=== PATIENT | male | born 1945 | race Caucasian/White ===

== ENCOUNTER 2017-11-10 10:14 | Inpatient (IN) | payer OTHER ==
[2017-11-10] VITALS (10 sets, daily range): BP systolic 130–202; BP diastolic 74–100
[~2017-11-10] VITALS: Ht 172.7 cm; Wt 72.6 kg
--- NOTE | 2017-11-10 10:27 | ED GENERAL ADULT ---
History of Present Illness General Chief Complaint: Psychiatric Related Complaint Stated Complaint: SIB [facility] FOR ALCOHOL WITHDRAWL Source: patient Exam Limitations: no limitations Vital Signs & Intake/Output Vital Signs & Intake/Output Vital Signs Date Time Temp Pulse Resp B/P B/P Pulse O2 O2 Flow FiO2 Mean Ox Delivery Rate 11/10 1048 99.3 110 20 /11/10 1041 98 Room Air Room Air 11/10 1022 99.3 110 24 93 Allergies Coded Allergies: No Known Allergies (11/10/17) Triage Note: PER PT WENT TO [facility] AND SENT HERE FOR WITHDRAWAL LAST DRINK 0500 DRINK MAINTAINENCE ETOH 1 PINT DAILY, TREMULOUS IN TRIAGE DENIES SZ OR DT Triage Nurses Notes Reviewed? yes HPI: Patient has been drinking very heavily for the past 3 weeks. Patient is an alcoholic with various periods of sobriety. Patient is unsure if he is having required medical detox in the past. Patient went to [email or web address] this morning requesting alcohol rehabilitation however he was very tremulous and hypertensive when he arrived there and his breathalyzer was 0.79. Patient was sent down for evaluation. Past History Travel History Traveled to [place] past 21 day No Medical History Any Pertinent Medical History? see below for history Neurological: NONE EENT: NONE Cardiovascular: hyperlipidemia Respiratory: NONE Gastrointestinal: NONE Hepatic: NONE Renal: NONE Musculoskeletal: NONE Psychiatric: depression Endocrine: NONE Surgical History Surgical History: non-contributory Psychosocial History What is your primary language Citizen Of [place] Tobacco Use: Never used ETOH Use: alcoholic Illicit Drug Use: denies illicit drug use Family History Hx Contributory? No Review of Systems Review of Systems Constitutional: Reports: no symptoms. EENTM: Reports: no symptoms. Respiratory: Reports: no symptoms. Cardiovascular: Reports: no symptoms. GI: Reports: no symptoms. Genitourinary: Reports: no symptoms. Musculoskeletal: Reports: no symptoms. Skin: Reports: no symptoms. Neurological/Psychological: Reports: see HPI. Hematologic/Endocrine: Reports: no symptoms. Immunologic/Allergic: Reports: no symptoms. All Other Systems: Reviewed and Negative Physical Exam Physical Exam General Appearance: well developed/nourished, alert, awake, anxious, moderate distress Head: atraumatic, normal appearance Eyes: Bilateral: PERRL, EOMI. Ears, Nose, Throat: normal pharynx, normal ENT inspection Neck: normal inspection, supple, full range of motion Respiratory: normal breath sounds, chest non-tender, no respiratory distress, lungs clear Cardiovascular: regular rate/rhythm, normal peripheral pulses Gastrointestinal: normal bowel sounds, soft, non-tender, no organomegaly Back: normal inspection, normal range of motion Extremities: normal inspection, normal capillary refill, normal range of motion, no edema Neurologic/Psych: no motor/sensory deficits, awake, alert, oriented x 3, normal mood/affect, TREMOLOUS Skin: intact, normal color Core Measures ACS in differential dx? No CVA/TIA Diagnosis: No Sepsis Present: No Sepsis Focused Exam Completed? No Progress Differential Diagnoses I considered the following diagnoses in my evaluation of the patient: [Alcohol dependency and acute withdrawal.] Plan of Care: Orders Procedure Date/time Status Heart Healthy Diet 11/10 L Active ED Holding Orders 11/10 1054 Active Admit to inpatient 11/10 1054 Active Vital Signs 11/10 1054 Active Code Status 11/10 1054 Active TROPONIN LEVEL 11/10 1030 Active EKG 11/10 1026 Active CIWA 11/10 1025 Active URINE DRUG SCREEN FOR ER ONLY 11/10 1024 Active URINALYSIS 11/10 1024 Active MAGNESIUM 11/10 1024 Active ETHANOL 11/10 1024 Active COMPREHENSIVE METABOLIC PANEL 11/10 1024 Active CBC WITHOUT DIFFERENTIAL 11/10 1024 Active Current Medications Sig/Susan Start time Last Medication Dose Stop Time Status Admin Atorvastatin Calcium 10 MG 1700 11/10 1700 UNVr (Lipitor) Lorazepam 1 MG ONCE ONE 11/10 1100 AC (Ativan) 11/10 1101 Lorazepam 1 MG ONE ONE 11/10 1100 AC (Ativan) 11/10 1101 Aspirin 81 MG DAILY 11/10 1050 UNVr (Aspirin) Sertraline HCl 100 MG DAILY 11/10 1050 UNVr (Zoloft) Laboratory Tests 11/10/17 1030: Sodium Pending, Potassium Pending, Chloride Pending, Carbon Dioxide Pending, Anion Gap Pending, BUN Pending, Creatinine Pending, BUN/Creatinine Ratio Pending , Glucose Pending, Calcium Pending, Magnesium Pending, Total Bilirubin Pending, AST Pending, ALT Pending, Alkaline Phosphatase Pending, Troponin I Pending, Total Protein Pending, Albumin Pending, Globulin Pending, Albumin/Globulin Ratio Pending, CBC w Diff Pending, WBC Pending, RBC Pending, Hgb Pending, Hct Pending, MCV Pending, MCH Pending, MCHC Pending, RDW Pending, Plt Count Pending, MPV Pending, Serum Alcohol Pending 11/10/17 1025: Troponin I Cancelled Initial ED EKG: NSR, no ST T wave changes Departure Departure Disposition: STILL A PATIENT Condition: Stable Clinical Impression Primary Impression: Alcohol dependency Departure Forms: Customer Survey General Discharge Information Admission Note Spoke With: Ean OSMAN,Alonso Documentation of Exam: Documentation of any treatments & extenuating circumstances including Concerns Regarding Discharge (functional status, medication knowledge or non-compliance, living conditions, etc.) that warrant an admission rather than observation: [ Patient CIWA score is are 13 and he still has alcohol on board. Patient is at high risk of having a seizure. Patient will require medical detox and then once he is medically stable he may be transferred to [facility] for the mental dependency associated with alcohol.] Alcohol Withdrawl Admission ED Alcohol Detox Admission d/t: CIWA Score >15 Critical Care Note Critical Care Note Critical Care Time: non-applicable
[2017-11-10 10:56] LABS: ABSOLUTE BASOPHIL COUNT 0 /CUMM (0.0-0.2); ABSOLUTE EOSINOPHIL COUNT 0 /CUMM (0.0-0.7); ABSOLUTE LYMPH COUNT 0.9 /CUMM (1.2-3.4); ABSOLUTE MONOCYTE COUNT 0.4 /CUMM (0.10-0.60); BASOPHIL % 0.4 % (0.0-2.0); EOSINOPHIL % 0.4 % (0-5); GRANULOCYTE % 81.7 % (42.2-75.2); HEMATOCRIT 45.9 % (42-52); MEAN CORPUSCULAR HGB 29.9 PG (27.0-31.0); MEAN CORPUSCULAR HGB CONC 34.2 G/DL (33.0-37.0); MEAN CORPUSCULAR VOLUME 87.4 FL (80.0-94.0); MEAN PLATELET VOLUME 7.5 FL (7.4-10.4); PLATELET COUNT 222 /CUMM (130-400); RBC DISTRIBUTION WIDTH 14.6 % (11.5-14.5); RED BLOOD CELL CT 5.26 /CUMM (4.70-6.10); WHITE BLOOD CELL COUNT 7.4 /CUMM (4.8-10.8)
--- NOTE | 2017-11-10 12:16 | History & Physical ---
TigrechristineGuzman 11/10/17 1215: General Information and HPI MD Statement: I have seen and personally examined LU CAMERON and documented this H&P. The patient is a 72 year old M who presented with a patient stated chief complaint of [ALCOHOL DETOX] Source of Information: patient Exam Limitations: no limitations History of Present Illness: 72 gentleman past medical history significant for alcohol use disorder, atrial flutter s/p ablation 3 years ago on aspirin, colorectal ca s/p resection, chemo/ radiation in 1996 currently in remission with last colonoscopy done one year ago , was sent by [facility] for alcohol detox. Apparently on morning of admission he went to [facility] and requested detox and when they breathalyzed him they found a level to be 0.79. He drinks 1 pint of vodka daily with the last drink being 5 AM today. Reports that his last detox was 1970s. Has never had any hospitalization for alcohol withdrawal, alcohol related seizures, delirium tremens, issues with the law. He has had history of prolonged sobriety longest being 17 years, and 4 years. However recently he has been starting to drink very heavily and he felt afraid that he could not stop. On interview he denied chest pain, palpitations, shortness of breath, nausea, vomiting, abdominal pain, fall, loss of consciousness, suicidal or homicidal ideations. Allergies/Medications Allergies: Coded Allergies: No Known Allergies (11/10/17) Compliance With Home Meds: GOOD Past History Travel History Traveled to [place] past 21 day No Medical History Neurological: NONE EENT: NONE Cardiovascular: hyperlipidemia Respiratory: NONE Gastrointestinal: NONE Hepatic: NONE Renal: NONE Musculoskeletal: NONE Psychiatric: depression Endocrine: NONE Surgical History Surgical History: non-contributory Past Family/Social History Psychosocial History ETOH Use: alcoholic Illicit Drug Use: denies illicit drug use Review of Systems Review of Systems Constitutional: Reports: see HPI. Exam & Diagnostic Data Last 24 Hrs of Vital Signs/I&O Vital Signs Date Time Temp Pulse Resp B/P B/P Pulse O2 O2 Flow FiO2 Mean Ox Delivery Rate 11/10 1740 98.0 105 20 156/74 98 Room Air 11/10 1545 98.4 104 20 170/100 95 11/10 1347 98.4 101 20 170/100 96 11/10 1233 98.9 85 18 166/92 95 Room Air Room Air 11/10 1135 98.6 98 18 158/94 11/10 1135 98.6 98 18 158/94 95 Room Air Room Air 11/10 1048 99.3 110 20 /90 11/10 1041 98 Room Air Room Air 11/10 1022 99.3 110 24 93 Intake & Output 11/10 1600 11/10 0800 11/10 0000 Intake Total 1150 Output Total Balance 1150 Intake, Oral 1150 Patient 155 lb Weight Weight Reported by Patient Measurement Method Physical Exam General Appearance Alert, Oriented X3, Cooperative, No Acute Distress HEENT Atraumatic, PERRLA, EOMI, Mucous Membr. moist/pink Neck Supple Lymphatic Cervical nl Cardiovascular Regular Rate, Normal S1, Normal S2 Lungs Clear to Auscultation, Normal Air Movement Abdomen Normal Bowel Sounds, Soft, No Tenderness Last 24 Hrs of Labs/Rolo: Laboratory Tests 11/10/17 1330: Urine Opiates Screen < 100, Methadone Screen < 40, Barbiturate Screen < 60, Ur Phencyclidine Scrn < 6.00, Amphetamines Screen < 100, U Benzodiazepines Scrn 98, Urine Cocaine Screen < 50, Urine Cannabis Screen < 5.00, Urinalysis LIGHT H, Urine Color YEL, Urine Clarity HAZY H, Urine pH 7.0, Ur Specific [place] 1.020, Urine Protein TRACE H, Urine Ketones 15 H, Urine Nitrite NEG, Urine Bilirubin NEG, Urine Urobilinogen 0.2, Ur Leukocyte Esterase NEG, Ur Microscopic SEDIMENT EXAMINED, Urine RBC 3-5, Urine WBC 1-3 H, Ur Epithelial Cells RARE, Urine Crystals 4+ CA OX H, Hyaline Casts 1-3 H, Urine Mucus MOD H, Urine Hemoglobin SMALL H, Urine Glucose NEG 11/10/17 1030: Anion Gap 16, Estimated GFR > 60, BUN/Creatinine Ratio 23.0, Glucose 102 H, Calcium 9.8, Magnesium 1.9, Total Bilirubin 1.0, AST 73 H, ALT 57, Alkaline Phosphatase 58, Troponin I < 0.01, Total Protein 7.2, Albumin 4.6, Globulin 2.6, Albumin/Globulin Ratio 1.8, CBC w Diff NO MAN DIFF REQ, RBC 5.26, MCV 87.4, MCH 29.9, MCHC 34.2, RDW 14.6 H, MPV 7.5, Gran % 81.7 H, Lymphocytes % 12.7 L, Monocytes % 4.8, Eosinophils % 0.4, Basophils % 0.4, Absolute Granulocytes 6.0, Absolute Lymphocytes 0.9 L, Absolute Monocytes 0.4, Absolute Eosinophils 0, Absolute Basophils 0, Serum Alcohol 83.0 11/10/17 1025: Troponin I Cancelled Assessment/Plan Assessment: 72 gentleman past medical history significant for alcohol use disorder, atrial flutter s/p ablation 3 years ago on aspirin, colorectal ca s/p resection, chemo/ radiation in 1996 currently in remission with last colonoscopy done one year ago , was sent by [facility] for alcohol detox. Assessment and plan Alcohol detox Medicine floor, vitals per protocol We will start on p.o. Ativan 2 mg every 6, with IV as needed per CIWA protocol MVI, p.o. thiamine and folic acid We will continue home meds of Zoloft, statin and aspirin, DVT prophylaxis subcu Lovenox, Full code As Ranked By This Provider Problem List: 1. Alcohol dependency 2. Depression Core Measures/Misc (01/24) Acute Coronary Syndrome ACS Diagnosis: No Congestive Heart Failure Congestive Heart Failure Diagnosis No Cerebrovascular Accident CVA/TIA Diagnosis: No VTE (View Protocol) VTE Risk Factors Age>40 No Mechanical VTE Prophylaxis d/t N/A MechProphylax Ordered No VTE Pharm Prophylaxis d/t NA PharmProphylax ordered Sepsis (View protocol) Sepsis Present: No If YES complete Sepsis Event Note If YES complete Sepsis Event Note Jhonny OSMAN,[facility] 11/10/17 1508: Core Measures/Misc (01/24) Sepsis (View protocol) If YES complete Sepsis Event Note If YES complete Sepsis Event Note Attending MD Review Statement Attending Statement Attending MD Statement: examined this patient, discuss w/resident/PA/GRIDCAP MACHINE OPERATOR, agreed w/resident/PA/GRIDCAP MACHINE OPERATOR, reviewed EMR data (avail), discussed with nursing, discussed with case mgmt, amended to note Attending Assessment/Plan: 72-year-old male with past medical history significant for alcohol use in the past, prolonged period of sobriety, anxiety, history of atrial flutter status post ablation then converted to sinus, colorectal cancer in the past status post resection who went to [facility] to get alcohol detox but was found to be acutely intoxicated therefore sent to the emergency room. Patient claims that he had 17 years of sobriety but started 3 years ago he started to drink again. He had injured his finger and was prescribed from narcotics. That gave him very good feeling and that was the trigger for him to drink again. He goes off and on in terms of heavy drinking. Currently has been ranging 1.25 every day. He did not think that he can quit himself this time therefore presented to get some help. He currently denies any aches or pains. No urinary complaints. Off note he had been taking Zoloft for possible anxiety and to keep himself away from alcohol. He said that it had worked in the past pretty well. Vital Signs Date Time Temp Pulse Resp B/P B/P Pulse O2 O2 Flow FiO2 Mean Ox Delivery Rate 11/10 1347 98.4 101 20 170/100 96 11/10 1233 98.9 85 18 166/92 95 Room Air Room Air 11/10 1135 98.6 98 18 158/94 11/10 1135 98.6 98 18 158/94 95 Room Air Room Air 11/10 1048 99.3 110 20 202/90 11/10 1041 98 Room Air Room Air 11/10 1022 99.3 110 24 202/90 93 on exam; aox3, nad. cv; s1, s2, rrr resp; clear abd; soft, nt, bs+ ext; no edema Laboratory Tests 11/10 11/10 1330 1030 Chemistry Sodium (137 - 145 mmol/L) 143 Potassium (3.5 - 5.1 mmol/L) 4.2 Chloride (98 - 107 mmol/L) 103 Carbon Dioxide (22 - 30 mmol/L) 23 Anion Gap (5 - 16) 16 BUN (9 - 20 mg/dL) 23 H Creatinine (0.7 - 1.2 mg/dL) 1.0 Estimated GFR (>60 ml/min) > 60 BUN/Creatinine Ratio (7 - 25 %) 23.0 Glucose (65 - 99 mg/dL) 102 H Calcium (8.4 - 10.2 mg/dL) 9.8 Magnesium (1.6 - 2.3 mg/dL) 1.9 Total Bilirubin (0.2 - 1.3 mg/dL) 1.0 AST (17 - 59 U/L) 73 H ALT (21 - 72 U/L) 57 Alkaline Phosphatase (< 127 U/L) 58 Troponin I (<0.11 ng/ml) < 0.01 Total Protein (6.3 - 8.2 g/dL) 7.2 Albumin (3.5 - 5.0 g/dL) 4.6 Globulin (1.9 - 4.2 gm/dL) 2.6 Albumin/Globulin Ratio (1.1 - 2.2 %) 1.8 Hematology CBC w Diff NO MAN DIFF REQ WBC (4.8 - 10.8 /CUMM) 7.4 RBC (4.70 - 6.10 /CUMM) 5.26 Hgb (14.0 - 18.0 G/DL) 15.7 Hct (42 - 52 %) 45.9 MCV (80.0 - 94.0 FL) 87.4 MCH (27.0 - 31.0 PG) 29.9 MCHC (33.0 - 37.0 G/DL) 34.2 RDW (11.5 - 14.5 %) 14.6 H Plt Count (130 - 400 /CUMM) 222 MPV (7.4 - 10.4 FL) 7.5 Gran % (42.2 - 75.2 %) 81.7 H Lymphocytes % (20.5 - 51.1 %) 12.7 L Monocytes % (1.7 - 9.3 %) 4.8 Eosinophils % (0 - 5 %) 0.4 Basophils % (0.0 - 2.0 %) 0.4 Absolute Granulocytes (1.4 - 6.5 /CUMM) 6.0 Absolute Lymphocytes (1.2 - 3.4 /CUMM) 0.9 L Absolute Monocytes (0.10 - 0.60 /CUMM) 0.4 Absolute Eosinophils (0.0 - 0.7 /CUMM) 0 Absolute Basophils (0.0 - 0.2 /CUMM) 0 Toxicology Urine Opiates Screen (>2000 NG/ML) < 100 Methadone Screen (>300 NG/ML) < 40 Barbiturate Screen (>200 NG/ML) < 60 Ur Phencyclidine Scrn (>25 NG/ML) < 6.00 Amphetamines Screen (>1000 NG/ML) < 100 U Benzodiazepines Scrn (>200 NG/ML) 98 Urine Cocaine Screen (>300 NG/ML) < 50 Urine Cannabis Screen (>50 NG/ML) < 5.00 Serum Alcohol (<10 MG/DL) 83.0 Urines Urinalysis LIGHT H Urine Color (YEL,AMB,STR) YEL Urine Clarity (CLEAR) HAZY H Urine pH (5.0 - 8.0) 7.0 Ur Specific [place] (1.001 - 1.035) 1.020 Urine Protein (NEG,<30 MG/DL) TRACE H Urine Ketones (NEG) 15 H Urine Nitrite (NEG) NEG Urine Bilirubin (NEG) NEG Urine Urobilinogen (0.1 - 1.0 EU/dl) 0.2 Ur Leukocyte Esterase (NEG) NEG Ur Microscopic SEDIMENT EXAMINED Urine RBC (0 - 5 /HPF) 3-5 Urine WBC (0 - 2 /HPF) 1-3 H Ur Epithelial Cells (NONE,FEW) RARE Urine Crystals 4+ CA OX H Hyaline Casts (0/LPF) 1-3 H Urine Mucus (FEW,NONE) MOD H Urine Hemoglobin (NEG) SMALL H Urine Glucose (N MG/DL) NEG 11/10 1025 Chemistry Troponin I Cancelled A/P; 72-year-old male with past medical history significant for alcohol use in the past, prolonged period of sobriety, anxiety, history of atrial flutter status post ablation then converted to sinus, colorectal cancer in the past status post resection admitted with acute alcohol intoxication. Patient admitted to medicine. He will be started on scheduled and when necessary Ativan per CIWA protocol. He will be continued on multivitamin, folate and thiamine. Social work consult. Patient will be kept on his Zoloft. Pharmacologic DVT prophylaxis.
[2017-11-11] VITALS (14 sets, daily range): BP systolic 120–150; BP diastolic 78–95
--- NOTE | 2017-11-11 06:43 | PN- Housestaff ---
Jimmy Clark 11/11/17 0642: Subjective Follow-up For: Alcohol detox Subjective: Patient was seen and examined at the bedside today. No acute events overnight, no complaints. Patient was writing a journal, "to piece together his past few days of drinking". Patient seemed optimistic, looking forward to returning to [facility] [employer] after his detox is complete. Review of Systems Constitutional: Reports: no symptoms. Objective Last 24 Hrs of Vital Signs/I&O Vital Signs Date Time Temp Pulse Resp B/P B/P Pulse O2 O2 Flow FiO2 Mean Ox Delivery Rate 07/ 1423 97.3 93 20 150/92 98 Room Air 07/05 1415 97.3 93 20 150/92 07/05 1200 98.6 85 20 142/95 07/05 1000 98.5 88 18 134/84 07/05 0800 98.2 89 20 135/78 07/05 0600 98.7 95 20 128/80 07/05 0400 98.7 95 20 128/80 07/05 0354 98.7 95 20 128/80 94 Room Air 07/05 0036 98.6 90 18 140/86 07/04 2300 98.5 97 18 140/86 96 Room Air 07/04 2200 98.5 93 20 130/90 07/04 2139 98.5 93 20 130/90 98 Room Air 07/04 2000 98.3 103 20 140/80 07/04 1931 98.3 103 20 140/80 97 Room Air 07/04 1740 98.0 105 20 156/74 98 Room Air 07/04 1545 98.4 104 20 170/100 95 Intake & Output 07/05 1600 07/05 0800 07/05 0000 Intake Total 240 360 Output Total Balance 240 360 Intake, Oral 240 360 Number 1 Bowel Movements Patient 112 lb Weight Physical Exam General Appearance: Alert, Oriented X3, Cooperative, No Acute Distress Skin: No Rashes, No Breakdown Skin Temp/Moisture Exam: Warm/Dry Sepsis Skin Exam (color): Normal for Ethnicity HEENT: Atraumatic, left-beating nystagmus Neck: Supple, No thryomegaly Cardiovascular: Regular Rate, Normal S1, Normal S2, No Murmurs Lungs: Clear to Auscultation, Normal Air Movement Abdomen: Normal Bowel Sounds, Soft, No Tenderness Neurological: Normal Speech, Strength at 5/5 X4 Ext, Normal Tone, Sensation Intact Orders CIWA Score (last 24 hrs): 13 on presentation, 2-3 today Assessment/Plan Assessment: 72-year-old male with alcohol use disorder atrial flutter status post ablation 3 years ago, colorectal cancer status post resection chemoradiation currently in remission, who presented to the ER after being sent from [facility] for alcohol detox. The morning of admission he went to [facility] and requested detox. They performed a breathalyzer and found his alcohol level to be 0.79. He admits to drinking 1 pint of vodka daily with his last drink being 5 AM on 11/10/17. Patient denies shortness of breath, chest pain, nausea, vomiting, abdominal pain , loss of conscious, fall, suicidal or homicidal ideation. Problem list: Alcohol detox PMH atrial flutter PMH colorectal cancer Plan: Admitted to medicine, vitals per protocol P.o. Ativan 2 mg every 6, taper by 25% tomorrow IV Ativan as needed for [place] protocol Continue to replete p.o. thiamine and folic acid and multivitamin Continue home meds Social work consult placed, follow tomorrow DVT prophylaxis: Subcu heparin Patient is full code Problem List: 1. Alcohol dependency 2. Depression Pain Ratin Pain Location: NA Pain Goal: Remain pain free Pain Plan: NA Tomorrow's Labs & Rationales: Alonso Looney 11/11/17 1136: Attending MD Review Statement Attending Statement Attending MD Statement: examined this patient, discuss w/resident/PA/CASK MAKER, agreed w/resident/PA/CASK MAKER, discussed with family, reviewed EMR data (avail), discussed with nursing, discussed with case mgmt, reviewed images, amended to note Attending Assessment/Plan: 72-year-old male with past medical history significant for alcohol use in the past, prolonged period of sobriety, anxiety, history of atrial flutter status post ablation then converted to sinus, colorectal cancer in the past status post resection admitted with acute alcohol intoxication. Overnight requiring scheduled ativan, ciwa +. mild tremors Patient admitted to medicine. Continue scheduled and when necessary Ativan per CIWA protocol. Continue on multivitamin, folate and thiamine. Social work consult. Patient will be kept on his Zoloft. DVT prophylaxis.
--- NOTE | 2017-11-11 14:01 | PN- Student ---
Grace Lopez 11/11/17 1355: Subjective Subjective: Hospital day 1: Patient was interviewed at bed side. Patient was sent by [facility] for alcohol detox. He complained of mild tremor. Objective Objective: Physical exam: - Patient is oriented, coorporative, no acute distress. - Eyes: normal extraocular movement, show nystamus on resting. - Cardiac: normal S1, S2, no additional murmur, no gallop. - Lungs: CTA. Results Results: Laboratory Tests 11/10/17 1330: Urine Opiates Screen < 100, Methadone Screen < 40, Barbiturate Screen < 60, Ur Phencyclidine Scrn < 6.00, Amphetamines Screen < 100, U Benzodiazepines Scrn 98, Urine Cocaine Screen < 50, Urine Cannabis Screen < 5.00, Urinalysis LIGHT H, Urine Color YEL, Urine Clarity HAZY H, Urine pH 7.0, Ur Specific [place] 1.020, Urine Protein TRACE H, Urine Ketones 15 H, Urine Nitrite NEG, Urine Bilirubin NEG, Urine Urobilinogen 0.2, Ur Leukocyte Esterase NEG, Ur Microscopic SEDIMENT EXAMINED, Urine RBC 3-5, Urine WBC 1-3 H, Ur Epithelial Cells RARE, Urine Crystals 4+ CA OX H, Hyaline Casts 1-3 H, Urine Mucus MOD H, Urine Hemoglobin SMALL H, Urine Glucose NEG 11/10/17 1030: Anion Gap 16, Estimated GFR > 60, BUN/Creatinine Ratio 23.0, Glucose 102 H, Calcium 9.8, Magnesium 1.9, Total Bilirubin 1.0, AST 73 H, ALT 57, Alkaline Phosphatase 58, Troponin I < 0.01, Total Protein 7.2, Albumin 4.6, Globulin 2.6, Albumin/Globulin Ratio 1.8, CBC w Diff NO MAN DIFF REQ, RBC 5.26, MCV 87.4, MCH 29.9, MCHC 34.2, RDW 14.6 H, MPV 7.5, Gran % 81.7 H, Lymphocytes % 12.7 L, Monocytes % 4.8, Eosinophils % 0.4, Basophils % 0.4, Absolute Granulocytes 6.0, Absolute Lymphocytes 0.9 L, Absolute Monocytes 0.4, Absolute Eosinophils 0, Absolute Basophils 0, Serum Alcohol 83.0 11/10/17 1025: Troponin I Cancelled Assessment/Plan Assessment: Summary: 72yr old male with PMH of alcohol use disorder, atrial flutter s/p ablation 3 yrs ago on aspirin, colorectal s/p resection, chemoradiation in 1996 with last colonoscopy done 1 year ago, was sent for alcohol detox. Lab is unremarkable. PE show mild resting nystamus. Problem list: - Alcohol use disorder. - Atrial flutter. Plan: - Continue alcohol detox. - Give glucose,thiamine supplement. - Replenish vitamin such B12 and folate. - Plan for discharge. - DVT prophylaxis. - Patient is DNR/DNI Jimmy Clark 11/12/17 1440: Resident Review Statement Resident Statement: examined this patient, reviewed EMR data (avail), agree with medical student
[2017-11-12] VITALS (10 sets, daily range): BP systolic 130–142; BP diastolic 84–92
--- NOTE | 2017-11-12 06:45 | PN- Housestaff ---
Jimmy Clark 11/12/17 0645: Subjective Follow-up For: Alcohol detox Complaints: no complaints Subjective: Hospital day 2. Patient was seen and examined at bedside today. 2 episodes of diarrhea, last night and this morning. Patient continues to right internal. Patient optimistic, looking forward to returning to [facility] after his detox is complete. Patient amenable to staying over the weekend. Review of Systems Constitutional: Reports: no symptoms. Objective Last 24 Hrs of Vital Signs/I&O Vital Signs Date Time Temp Pulse Resp B/P B/P Pulse O2 O2 Flow FiO2 Mean Ox Delivery Rate / 0600 97.6 99 18 130/92 07/06 0525 97.6 99 18 130/92 97 Room Air 07/06 0200 97.6 89 18 130/84 07/06 0000 97.6 89 18 130/84 07/06 0000 97.6 89 18 130/84 96 07/05 2221 98.2 102 18 132/80 97 07/05 2200 98.2 102 18 132/80 07/05 2000 98.1 82 18 124/82 98 Room Air 07/05 1800 97.9 87 18 144/90 94 07/05 1612 97.5 87 18 120/80 96 Room Air 07/05 1423 97.3 93 20 150/92 98 Room Air 07/05 1415 97.3 93 20 150/92 Intake & Output 07/06 1600 07/06 0800 07/06 0000 Intake Total 360 480 Output Total Balance 360 480 Intake, Oral 360 480 Physical Exam General Appearance: Alert, Oriented X3, Cooperative, No Acute Distress Skin: No Rashes, No Breakdown Skin Temp/Moisture Exam: Warm/Dry Sepsis Skin Exam (color): Normal for Ethnicity HEENT: Atraumatic, PERRLA, EOMI Neck: Supple, No thryomegaly Cardiovascular: Regular Rate, Normal S1, Normal S2, No Murmurs Abdomen: Normal Bowel Sounds, Soft, No Tenderness, No Hepatospenomegaly Neurological: Normal Gait, mild dysmetria on [id number] Extremities: remaining tremor Assessment/Plan Assessment: 72-year-old male with alcohol use disorder atrial flutter status post ablation 3 years ago, colorectal cancer status post resection chemoradiation currently in remission, who presented to the ER after being sent from [facility] for alcohol detox. The morning of admission he went to [facility] and requested detox. They performed a breathalyzer and found his alcohol level to be 0.79. He admits to drinking 1 pint of vodka daily with his last drink being 5 AM on 11/10/17. Patient denies shortness of breath, chest pain, nausea, vomiting, abdominal pain , loss of conscious, fall, suicidal or homicidal ideation. Problem list: Alcohol detox PMH atrial flutter PMH colorectal cancer Plan: Admitted to medicine, vitals per protocol P.o. Ativan 1.5 mg every 6, taper by 25% tomorrow IV Ativan as needed for ciwa protocol Continue to replete p.o. thiamine and folic acid and multivitamin Continue home meds Social work consult placed, follow note when input DVT prophylaxis: Subcu heparin Patient is full code Problem List: 1. Alcohol dependency 2. Depression Pain Ratin Pain Location: na Pain Goal: Remain pain free Pain Plan: na Tomorrow's Labs & Rationales: sana MckoyJimmyharry 11/12/17 1117: Attending MD Review Statement Attending Statement Attending MD Statement: examined this patient, discuss w/resident/PA/ARCHITECTURAL COATING FINISHER, agreed w/resident/PA/ARCHITECTURAL COATING FINISHER, discussed with family, reviewed EMR data (avail), discussed with nursing, discussed with case mgmt, reviewed images, amended to note Attending Assessment/Plan: Patient admitted to medicine. Continue scheduled and when necessary Ativan per CIWA protocol. he is on ativan 1.5 q 6 with mild tremors though vitals stable. Also had 2 epsidoe of loose stools, add lomitil 2m prn for diarrhea. Continue on multivitamin, folate and thiamine. Social work pending. Patient will be kept on his Zoloft. DVT prophylaxis.
--- NOTE | 2017-11-12 08:14 | PN- Student ---
Grace Lopez 11/12/17 0759: Subjective Subjective: Hospital Day 2: Patient was interviewed at bed side. Patient was writing journal, seemed calm and composed. Overnight, patient had diarrhea, probably due to detox medications. Also had IV Tylenol to control tremor. Patient is fine this morning , except for mild tremor, thought and speech are not quite coherent together. Objective Objective: Physcial exam: - Cardiac: normal heart sound, no additional murmur or gallop. - Lungs: CTA, unremarkable. - Eyes: normal light reflex, normal extraocular movement. - Neuro: no dystremia, normal tuvlbu-[id number]-sdwq test, normal [id number]-[id number] test, no resting nystamus. - Extremities: negative pronator drift, mild resting tremor, no peripheral edema. Results Results: Laboratory Tests 11/10/17 1330: Urine Opiates Screen < 100, Methadone Screen < 40, Barbiturate Screen < 60, Ur Phencyclidine Scrn < 6.00, Amphetamines Screen < 100, U Benzodiazepines Scrn 98, Urine Cocaine Screen < 50, Urine Cannabis Screen < 5.00, Urinalysis LIGHT H, Urine Color YEL, Urine Clarity HAZY H, Urine pH 7.0, Ur Specific [place] 1.020, Urine Protein TRACE H, Urine Ketones 15 H, Urine Nitrite NEG, Urine Bilirubin NEG, Urine Urobilinogen 0.2, Ur Leukocyte Esterase NEG, Ur Microscopic SEDIMENT EXAMINED, Urine RBC 3-5, Urine WBC 1-3 H, Ur Epithelial Cells RARE, Urine Crystals 4+ [place] OX H, Hyaline Casts 1-3 H, Urine Mucus MOD H, Urine Hemoglobin SMALL H, Urine Glucose NEG 11/10/17 1030: Anion Gap 16, Estimated GFR > 60, BUN/Creatinine Ratio 23.0, Glucose 102 H, Calcium 9.8, Magnesium 1.9, Total Bilirubin 1.0, AST 73 H, ALT 57, Alkaline Phosphatase 58, Troponin I < 0.01, Total Protein 7.2, Albumin 4.6, Globulin 2.6, Albumin/Globulin Ratio 1.8, CBC w Diff NO MAN DIFF REQ, RBC 5.26, MCV 87.4, MCH 29.9, MCHC 34.2, RDW 14.6 H, MPV 7.5, Gran % 81.7 H, Lymphocytes % 12.7 L, Monocytes % 4.8, Eosinophils % 0.4, Basophils % 0.4, Absolute Granulocytes 6.0, Absolute Lymphocytes 0.9 L, Absolute Monocytes 0.4, Absolute Eosinophils 0, Absolute Basophils 0, Serum Alcohol 83.0 11/10/17 1025: Troponin I Cancelled Assessment/Plan Assessment: Summary: 72-year-old male with alcohol use disorder, PMH of atrial flutter treated with ablation 3 years ago on ASA, colorectal cancer with resection and chemoradiation in 1996 with remission. He was sent for alcohol detox from [facility]. Patient had mild tremor, diarrhea twice, otherwise lab and PE are unremakable. CWAR went down to 2-3 score. Problem list: - Alcohol disorder. Plan: - Continue on vitamin supplements. - Continue alcohol detox. - Give loperamide to treat diarrhea. - Plan to next week. - Patient is DNR/DNT. AmberJimmy 11/12/17 1442: Resident Review Statement Resident Statement: examined this patient, reviewed EMR data (avail), agree with medical student
--- NOTE | 2017-11-12 13:46 | Patient Discharge Instructions ---
Discharge Instructions General Discharge Information Special Instructions: - Please follow up with your primary care physician within 1-2 weeks of discharge. Inform your primary care physician of this admission to [facility]. - Continue your current medications per discharge instructions. - Please watch for these problems: Fever, Chills, Nausea, Vomiting, Shortness of Breath, Productive Cough, Chest Pain/Discomfort, Abdominal Pain, Active Bleeding or Bloody urine/stool. Diet Continue normal diet: Yes Activity Full Activity/No Limits: Yes Acute Coronary Syndrome Inclusion Criteria At DC or during hospital stay patient has or had the following: ACS DIAGNOSIS No Discharge Core Measures Meds if any: Prescribed or Continued at Discharge Meds if any: NOT Prescribed or Continued at Discharge Congestive Heart Failure Inclusion Criteria At DC or during hospital stay patient has or had the following: CHF DIAGNOSIS No Discharge Core Measures Meds if any: Prescribed or Continued at Discharge Meds if any: NOT Prescribed or Continued at Discharge Cerebrovascular accident Inclusion Criteria At DC or during hospital stay patient has or had the following: CVA/TIA Diagnosis No Discharge Core Measures Meds if any: Prescribed or Continued at Discharge Meds if any: NOT Prescribed or Continued at Discharge Venous thromboembolism Inclusion Criteria VTE Diagnosis No VTE Type NONE VTE Confirmed by (Test) NONE Discharge Core Measures - Per Current guidelines, there needs to be overlap - treatment for the first 5 days of Warfarin therapy. - If discharged on Warfarin prior to 5 days of - overlap therapy, the patient will need to be - assessed for post discharge needs including - *Post discharge parental anticoagulation - *Warfarin and/or parental anticoagulation education - *Follow up date to check INR post discharge At least 5 days overlap therapy as Inpatient No Meds if any: Prescribed or Continued at Discharge Note: Overlap Therapy is Warfarin and Anticoagulant Meds if any: NOT Prescribed or Continued at Discharge
[2017-11-13] VITALS (8 sets, daily range): BP systolic 120–140; BP diastolic 70–96
--- NOTE | 2017-11-13 06:33 | PN- Housestaff ---
BrooksYasmin Diego Colesie 11/13/17 0633: Subjective Follow-up For: Alcohol Detox Subjective: No overnight event. Max CIWA 2. Patient had no specific complaint. Review of Systems Constitutional: Reports: see HPI. Objective Last 24 Hrs of Vital Signs/I&O Vital Signs Date Time Temp Pulse Resp B/P B/P Pulse O2 O2 Flow FiO2 Mean Ox Delivery Rate 11/13 0630 97.6 86 20 136/96 98 Room Air 11/13 0235 97.9 91 20 120/96 97 Room Air 11/13 0039 97.9 88 20 140/96 97 Room Air / 2230 98.6 90 20 140/90 07/ 2218 98.6 90 20 140/90 96 / 2023 98.6 90 142/90 / 1800 98.2 97 20 138/87 07/06 1600 98.2 97 20 138/87 /06 1415 98.2 97 20 138/87 95 Room Air Intake & Output 11/13 0800 11/13 0000 11/12 1600 Intake Total 240 800 Output Total Balance 240 800 Intake, Oral 240 800 Number 3 Bowel Movements Physical Exam General Appearance: Alert, Oriented X3, Cooperative, No Acute Distress Cardiovascular: Regular Rate Lungs: Clear to Auscultation, Normal Air Movement Abdomen: Normal Bowel Sounds, Soft, No Tenderness Neurological: Normal Speech, Strength at 5/5 X4 Ext Extremities: No Cyanosis, No Edema, Normal Pulses, No Tenderness/Swelling Current Medications: Current Medications Sig/Susan Start time Last Medication Dose Route Stop Time Status Admin Aspirin 81 MG DAILY 11/11 09 AC 11/12 PO 0819 Atorvastatin Calcium 10 MG 1700 11/11 1700 AC 11/12 PO 1648 Enoxaparin Sodium 40 MG DAILY 11/11 0900 AC 11/12 SC 0820 Folic Acid 1 MG DAILY 11/10 1254 AC 11/12 PO 0819 Loperamide HCl 2 MG Q6PRN PRN 11/12 1100 AC PO Lorazepam 1 MG Q6 11/13 0600 AC 11/13 PO 0558 Lorazepam 1.5 MG Q6 11/12 0600 DC 11/12 PO 11/13 0000 2346 Lorazepam 0 Q1P PRN 11/10 1300 AC 11/11 IV 2226 Multivitamins 1 TAB DAILY 11/10 1254 AC 11/12 PO 0819 Sertraline HCl 100 MG DAILY 11/11 0900 AC 11/12 PO 0819 Thiamine HCl 100 MG DAILY 11/10 1254 AC 11/12 PO 0819 Assessment/Plan Assessment: 72-year-old male with alcohol use disorder atrial flutter status post ablation 3 years ago, colorectal cancer status post resection chemoradiation currently in remission, who presented to the ER after being sent from [facility] for alcohol detox. The morning of admission he went to [facility] and requested detox. They performed a breathalyzer and found his alcohol level to be 0.79. He admits to drinking 1 pint of vodka daily with his last drink being 5 AM on 11/10/17. Patient denies shortness of breath, chest pain, nausea, vomiting, abdominal pain , loss of conscious, fall, suicidal or homicidal ideation. Problem list: Alcohol detox PMH atrial flutter, colorectal cancer Plan: P.o. Ativan tapered to 1 mg every 6. Patient had not required PRN IV ativan overnight with max CIWA of 2. Will continue taper 25% T+1, Pending discharge in next 24-48hrs. IV Ativan as needed for ciwa protocol Continue to replete p.o. thiamine and folic acid and multivitamin Continue home meds Social work consult appreciated DVT prophylaxis: Subcu heparin Patient is full code Problem List: 1. Alcohol dependency Pain Ratin Pain Location: NA Pain Goal: Remain pain free Pain Plan: see AP Tomorrow's Labs & Rationales: NA Debra OSMAN,[facility] 11/13/17 1752: Attending MD Review Statement Attending Statement Attending MD Statement: examined this patient, discuss w/resident/PA/PACKAGING LINE ATTENDANT, agreed w/resident/PA/PACKAGING LINE ATTENDANT, reviewed EMR data (avail) Attending Assessment/Plan: 72M PMH alcohol use in the past, prolonged period of sobriety, anxiety, history of atrial flutter status post ablation then converted to sinus, colorectal cancer in the past status post resection sent from [facility] for alcohol intoxication, became tremulous and tacyhcardic initially, now improving on Ativan taper. No complaints today, no tremors or tongue fasciculations, labs reviewed, stable vitals, exam benign. 1. Alcohol withdrawal, uncomplicated Plan - Continue on general medicine - Taper Ativan to 1mg q12h tomorrow - Ativan PRN CIWA - Continue home medications - No labs tomorrow - DVT PPx - Anticipated discharge Wednesday to
[2017-11-14 06:30] VITALS: BP 114/80
[2017-11-14 06:32] VITALS: BP 114/80
--- NOTE | 2017-11-14 11:56 | PN- Housestaff ---
See Addendum Subjective Follow-up For: Alcohol detox Subjective: Patient was seen and examined at the bedside. No acute events overnight. Max CIWA 2 overnight. Patient had no specific complaints. Patient hoping to return to [facility] tomorrow. Review of Systems Constitutional: Reports: no symptoms. Objective Last 24 Hrs of Vital Signs/I&O Vital Signs Date Time Temp Pulse Resp B/P B/P Pulse O2 O2 Flow FiO2 Mean Ox Delivery Rate 11/14 0632 98.1 85 18 114/80 94 Room Air 11/14 0630 98.1 85 18 114/80 11/13 2230 98.5 95 18 120/80 11/13 2203 98.5 95 18 120/80 95 Room Air 11/13 2030 98.8 97 132/70 11/13 1800 98.8 97 18 132/70 94 Room Air 11/13 1504 98.4 88 20 130/80 96 Room Air Intake & Output 11/14 1600 08 0800 07/ 0000 Intake Total 240 Output Total Balance 240 Intake, Oral 240 Number 0 Bowel Movements Physical Exam General Appearance: Alert, Oriented X3, Cooperative, No Acute Distress Skin: No Rashes, No Breakdown Skin Temp/Moisture Exam: Warm/Dry HEENT: Atraumatic, PERRLA, EOMI Neck: Supple, No JVD, No thryomegaly Cardiovascular: Regular Rate, Normal S1, Normal S2, No Murmurs Lungs: Clear to Auscultation, Normal Air Movement Abdomen: Soft, No Tenderness, No Hepatospenomegaly Neurological: Normal Gait, Normal Speech, Strength at 5/5 X4 Ext, Normal Tone, Sensation Intact Assessment/Plan Assessment: 72-year-old male with alcohol use disorder atrial flutter status post ablation 3 years ago, colorectal cancer status post resection chemoradiation currently in remission, who presented to the ER after being sent from [facility] for alcohol detox. The morning of admission he went to [facility] and requested detox. They performed a breathalyzer and found his alcohol level to be 0.79. He admits to drinking 1 pint of vodka daily with his last drink being 5 AM on 11/10/17. Patient denies shortness of breath, chest pain, nausea, vomiting, abdominal pain , loss of conscious, fall, suicidal or homicidal ideation. Problem list: Alcohol detox PMH atrial flutter, colorectal cancer Plan: P.o. Ativan tapered to .5 mg every 6. Patient had not required PRN IV ativan overnight with max CIWA of 2. Will continue taper 25% T+1, Pending discharge in next 24-48hrs. IV Ativan as needed for ciwa protocol Continue to replete p.o. thiamine and folic acid and multivitamin Continue home meds Social work consult appreciated Problem List: 1. Alcohol dependency 2. Depression Pain Ratin Pain Location: None Pain Goal: Remain pain free Pain Plan: None Tomorrow's Labs & Rationales: None
[2017-11-14 16:52] VITALS: BP 126/80
[2017-11-14 22:18] VITALS: BP 146/90
[2017-11-15] VITALS (7 sets, daily range): BP systolic 112–134; BP diastolic 68–80
--- NOTE | 2017-11-15 14:00 | PN- Housestaff ---
See Addendum Subjective Follow-up For: Alcohol detox Subjective: Patient was seen and examined standing at the bedside. No acute events overnight. Highest CIWA was 1 overnight; most recent 3 have been 0. Patient has no complaints. Plan to discharge to [email or web address] tomorrow a.m. Review of Systems Constitutional: Reports: no symptoms. Objective Last 24 Hrs of Vital Signs/I&O Vital Signs Date Time Temp Pulse Resp B/P B/P Pulse O2 O2 Flow FiO2 Mean Ox Delivery Rate 11/15 0636 97.8 70 18 112/68 96 Room Air 11/14 2218 98.6 86 18 146/90 96 Room Air 11/14 1652 98.6 95 18 126/80 96 Room Air Physical Exam General Appearance: Alert, Oriented X3, Cooperative, No Acute Distress Skin: No Rashes, No Breakdown, No Significant Lesion Skin Temp/Moisture Exam: Warm/Dry HEENT: Atraumatic, PERRLA, EOMI, Mucous Membr. moist/pink Neck: Supple, No JVD, No thryomegaly Cardiovascular: Regular Rate, Normal S1, Normal S2, No Murmurs Lungs: Clear to Auscultation, Normal Air Movement Abdomen: Normal Bowel Sounds, Soft, No Tenderness, No Hepatospenomegaly Neurological: Normal Gait, Normal Speech, Strength at 5/5 X4 Ext, Normal Tone, Sensation Intact, Cranial Nerves 3-12 NL Extremities: No Clubbing, No Cyanosis, No Edema, Normal Pulses Assessment/Plan Assessment: 72-year-old male with alcohol use disorder atrial flutter status post ablation 3 years ago, colorectal cancer status post resection chemoradiation currently in remission, who presented to the ER after being sent from [email or web address] for alcohol detox. The morning of admission he went to [email or web address] and requested detox. They performed a breathalyzer and found his alcohol level to be 0.79. He admits to drinking 1 pint of vodka daily with his last drink being 5 AM on 11/10/17. Patient denies shortness of breath, chest pain, nausea, vomiting, abdominal pain , loss of conscious, fall, suicidal or homicidal ideation. Continuing Ativan taper, plan to discharge tomorrow Problem list/plan: Alcohol detox Ativan overnight with max CIWA of 1. DVT prophylaxis Patient is DNR/DNI Problem List: 1. Alcohol dependency 2. Depression Pain Ratin Pain Location: None Pain Goal: Remain pain free Pain Plan: none Tomorrow's Labs & Rationales: None
[2017-11-16 06:00] VITALS: BP 118/80
[2017-11-16 06:20] VITALS: BP 126/78
--- NOTE | 2017-11-16 06:42 | PN- Housestaff ---
Jimmy Clark 11/16/17 0642: Subjective Follow-up For: Alcohol detox Complaints: no complaints Subjective: Patient was seen and examined at the bedside. No acute events overnight. Highest CIWA was 1 overnight. Most recent is 0. Patient has no complaints overnight. Patient was discharged [facility] this afternoon. Review of Systems Constitutional: Reports: no symptoms. Objective Last 24 Hrs of Vital Signs/I&O Vital Signs Date Time Temp Pulse Resp B/P B/P Pulse O2 O2 Flow FiO2 Mean Ox Delivery Rate 11/16 0620 98.5 70 16 126/78 98 Room Air 11/16 0600 97.7 72 14 118/80 07/ 2355 97.7 72 14 118/80 07/ 2231 97.7 72 14 118/80 98 Room Air 11/15 2200 97.8 79 20 134/80 07/09 2000 97.8 79 20 134/80 /09 1820 97.8 79 20 134/80 98 Room Air Intake & Output 11/16 1600 11/16 0800 11/16 0000 Intake Total 480 480 Output Total Balance 480 480 Intake, Oral 480 480 Physical Exam General Appearance: Alert, Oriented X3, Cooperative, No Acute Distress Skin: No Rashes, No Breakdown Skin Temp/Moisture Exam: Warm/Dry HEENT: Atraumatic, PERRLA, EOMI, Mucous Membr. moist/pink Neck: Supple, No JVD, No thryomegaly, +2 Carotid Pulse wo Bruit Cardiovascular: Regular Rate, Normal S1, Normal S2, No Murmurs Lungs: Clear to Auscultation, Normal Air Movement Abdomen: Normal Bowel Sounds, Soft, No Tenderness, No Hepatospenomegaly Neurological: Normal Gait, Normal Speech, Strength at 5/5 X4 Ext, Normal Tone, Sensation Intact Assessment/Plan Assessment: 72-year-old male with alcohol use disorder atrial flutter status post ablation 3 years ago, colorectal cancer status post resection chemoradiation currently in remission, who presented to the ER after being sent from [facility] for alcohol detox. The morning of admission he went to [facility] and requested detox. They performed a breathalyzer and found his alcohol level to be 0.79. He admits to drinking 1 pint of vodka daily with his last drink being 5 AM on 11/10/17. Patient denies shortness of breath, chest pain, nausea, vomiting, abdominal pain , loss of conscious, fall, suicidal or homicidal ideation. Completed Ativan taper, and patient was discharged today. Problem List: 1. Alcohol dependency 2. Depression Pain Ratin Pain Location: none Pain Goal: Remain pain free Pain Plan: none Tomorrow's Labs & Rationales: none Alonso Mckoy 11/16/17 1207: Attending MD Review Statement Attending Statement Attending MD Statement: examined this patient, discuss w/resident/PA/CARPENTER REFRIGERATOR, agreed w/resident/PA/CARPENTER REFRIGERATOR, discussed with family, reviewed EMR data (avail), discussed with nursing, discussed with case mgmt, reviewed images, amended to note Attending Assessment/Plan: Remedios is medically stbale for discharge. Follow up with social work program coordinator.
--- NOTE | 2017-11-16 07:51 | Discharge Summary ---
Visit Information Visit Dates Admission Date: 11/10/17 Discharge Date: 11/16/2017 Hospital Course Course Attending Physician: Alonso Mckoy MD Primary Care Physician: Jessica OSMAN,[place] Hospital Course: 72 gentleman past medical history significant for alcohol use disorder, atrial flutter s/p ablation 3 years ago on aspirin, colorectal ca s/p resection, chemo/ radiation in 1996 currently in remission with last colonoscopy done one year ago , was sent by [facility] for alcohol detox. Apparently on morning of admission he went to [facility] and requested detox and when they breathalyzed him they found a level to be 0.79. He drinks 1 pint of vodka daily with the last drink being 5 AM today. Reports that his last detox was . Has never had any hospitalization for alcohol withdrawal, alcohol related seizures, delirium tremens, issues with the law. He has had history of prolonged sobriety longest being 17 years, and 4 years. However recently he has been starting to drink very heavily and he felt afraid that he could not stop. On interview he denied chest pain, palpitations, shortness of breath, nausea, vomiting, abdominal pain, fall, loss of consciousness, suicidal or homicidal ideations. Was admitted to general medicine floor for the management of the following #Alcohol Detox Patient was started on 2 mg of Ativan every 6+ IV Ativan per CIWA protocol, gradually tapered down on ativan as patient's CIWA improved. SW arranged discharge to [facility] for further detox management. Patient was discharged without specific complaint. He was continued on home meds for PMH DVT PPX Chem + ALPS Regular Diet DNR/DNI Allergies: Coded Allergies: No Known Allergies (11/10/17) Disposition Summary Disposition Principal Diagnosis: #Alcohol Detox #PMH of A-flutters s/p ablation, Colorectal CA s/p resection Additional Diagnosis: as above Discharge Disposition: home or self care Discharge Instructions General Discharge Information Code Status: Do Not Resucitate/Intubat Patient's Diet: regular diet Patient's Activity: as tolerated Follow-Up Instructions/Appts: - Please follow up with your primary care physician within 1-2 weeks of discharge. Inform your primary care physician of this admission to [facility]. - Continue your current medications per discharge instructions. - Please watch for these problems: Fever, Chills, Nausea, Vomiting, Shortness of Breath, Productive Cough, Chest Pain/Discomfort, Abdominal Pain, Active Bleeding or Bloody urine/stool. Medications at Discharge Discharge Medications: Start taking the following new medications: Atorvastatin Calcium (Atorvastatin Calcium) 10 MG TABLET 10 Milligram ORAL 5 PM Qty = 30 No Refills Comments: Last Taken:11/15/17 Time:182 Aspirin (Aspirin*) 81 MG TAB.CHEW 81 Milligram ORAL DAILY Qty = 60 No Refills Comments: Last Taken:11/16/17 Time:0900 AM Sertraline HCl (Zoloft) 100 MG TABLET 100 Milligram ORAL DAILY Qty = 30 No Refills Comments: Last Taken:11/16/17 Time:0930 AM Copies To: Jessica OSMAN,Antony Attending MD Review Statement Documenting Attending: Alonso Mckoy MD
[2017-11-16] MEDS ORDERED: ATORVASTATIN CA10 M1 PO (11:05)
[2017-11-16] MEDS ORDERED: ZOLOFT100 M1 PO (11:05)
[2017-11-16] MEDS ORDERED: ASPIRIN81 M4 PO (11:05)
== END 2017-11-16 11:29 | DRG 897 ==
LOC: ERH 10:14 → 2NA 10:54 → ERHI 10:54 → ENRESERV 11:12 → ENTRNSPT 12:23 → EDTRNSPT 12:39 → EDTRNSPTSTS 12:39 → 2NA 12:49 → CMPTRNSPT 12:58 → 2NA 11-11 07:45 → ENPENDDIS 11-16 10:23 → 2NA 11-16 11:29
PROVIDERS: Physician Assistant Medical
DX: F10.239 Alcohol dependence with withdrawal, unspecified (principal); F10.229 Alcohol dependence with intoxication, unspecified; Y90.4 Blood alcohol level of 80-99 mg/100 ml; E78.5 Hyperlipidemia, unspecified; Z85.038 Personal history of other malignant neoplasm of large intestine; Z90.49 Acquired absence of other specified parts of digestive tract; F32.9 Major depressive disorder, single episode, unspecified; Z92.21 Personal history of antineoplastic chemotherapy; Z92.3 Personal history of irradiation
CPT/HCPCS: 2NAP; 80307; 81001; 93005; 93010; G0480; J1650; J3490